=== PATIENT | male | born 1955 | race Caucasian/White ===

== ENCOUNTER 2017-03-09 13:52 | Emergency (ER) | payer BC ==
[~2017-03-09] VITALS: Ht 175.3 cm; Wt 99.8 kg
[~2017-03-09 13:52] MED LIST: CPR500T PO; CYCL10TA9 PO; HYDR1TAB PO; METR500T PO; PROP1TAB77 PO
[2017-03-09] MEDS ORDERED: LIDOCAINE/EPI 1%-1:100,000 (XYLOCAINE) 20ML INJ ONE (14:00)
[2017-03-09] MEDS ORDERED: TETANUS,DIPTH,PERTUSS P/F (BOOSTRIX) 0.5 ML VIAL IM ONE (14:00)
--- NOTE | 2017-03-09 14:00 | ED Head Injury ---
General Chief Complaint: Laceration Stated Complaint: FALL/HEAD LACERATION Source: patient Exam Limitations: no limitations History of Present Illness Time seen by provider: 13:59 Initial Comments Brought to ER by family and friends with laceration to the occipital scalp. Patient was at work jumping from one tract to another on a trackhoe when he slipped and fell striking the back of his head on one of the tracks. Tetanus is not up-to-date. No loss of consciousness. No neck pain. No other injuries or complaints of pain. Occurred: just prior to arrival Severity: moderate Location: occipital Method of Injury: fell Loss of Consciousness: no loss of consciousness Allergies and Home Medications Allergies Coded Allergies: No Known Drug Allergies (Unverified , 06/13/10) Home Medications Atorvastatin Calcium 10 Mg Tablet, 10 MG PO, (Reported) Cyclobenzaprine Hcl 10 Mg Tablet, 1 EACH PO TID, (Reported) Oxycodone HCl/Acetaminophen 1 Each Tablet, 1 EACH PO, (Reported) Rutin/Hesp/Bioflav/C/Herb#196 1 Each Tablet, 1 EACH PO, (Reported) Constitutional: see HPI Eyes: No Symptoms Reported Ears, Nose, Mouth, Throat: no symptoms reported Respiratory: no symptoms reported Cardiovascular: no symptoms reported Genitourinary: no symptoms reported Musculoskeletal: no symptoms reported Skin: no symptoms reported Psychiatric/Neurological: No Symptoms Reported Endocrine: No Symptoms Reported Past Xpnhpoc-Bofjgi-Codedr Hx Patient Social History Recent Foreign Travel: No Contact w/Someone Who Travel: No Respiratory Hx Respiratory Disorders: No Cardiovascular Hx Cardiac Disorders: No Neurological Hx Neurological Disorders: No Reproductive System Hx Reproductive Disorders: No Genitourinary Hx Genitourinary Disorders: No Gastrointestinal Hx Gastrointestinal Disorders: Yes Musculoskeletal Hx Musculoskeletal Disorders: Yes Endocrine Hx Endocrine Disorders: No HEENT HX ENT Disorders: Yes Psychosocial Hx Psychiatric Problems: No Blood Transfusions Hx Blood Disorders: No Physical Exam Vital Signs Vital Sign - Last 12Hours 03/09/17 13:54 Temp 98.1 Pulse 106 Resp 20 B/P (MAP) 129/101 Pulse Ox 95 O2 Delivery Room Air Capillary Refill : General Appearance: WD/WN, no apparent distress HEENT: PERRL/EOMI, normal ENT inspection Neck: non-tender, full range of motion, No tender lateral, No tender midline Cardiovascular: regular rate, rhythm, no murmur Respiratory: no respiratory distress, no accessory muscle use Gastrointestinal: normal bowel sounds, non tender, soft Extremities: normal range of motion, non-tender Psychiatric: alert Crainal Nerves: normal hearing, normal speech, PERRL Motor/Sensory: no motor deficit, no sensory deficit Skin: normal color, warm/dry, other (there is a 5 cm laceration to the posterior parietal scalp without active bleeding) [place] Coma Score Best Eye Response: (4) Open Spontaneously Best Verbal Response: (5) Oriented Best Motor Response: (6) Obeys Commands [place] Total: 15 Laceration Repair : Wound Location: Scalp Wound Length (cm): 5 Wound's Depth, Shape: sub Q Irrigated w/ Saline (ccs): 20 Betadine Prep?: Yes Anesthesia: Lidocaine w/ Epi Volume Anesthetic (ccs): 4 Staple Repair: Stapler 35W Progress 10 aleks Progress/Results/Core Measures Results/Orders My Orders Orders - LORRAINE CA APRN Ct Head/Cervical Spine Wo (03/09/17 13:58) Dipht,Pertuss(Acell),Tet Adult (Boostrix (03/09/17 14:00) Lidocaine/Epi 1% 1:100,000 (Xylocaine /E (03/09/17 14:00) Lidocaine/Epi 2% 1:100,000 (Xylocaine/Ep (03/09/17 14:15) Medications Given in ED Current Medications Medications Dose Ordered Sig/Barbara Route Start Time Stop Time Status Last Admin Dose Admin Diphtheria/ Tetanus/Acell Pertussis 0.5 ml ONCE ONCE IM 03/09/17 14:00 03/09/17 14:01 DC 03/09/17 14:20 0.5 ML Lidocaine/ Epinephrine 4 ml ONCE ONCE INJ 03/09/17 14:15 03/09/17 14:16 DC 03/09/17 14:27 4 ML Vital Signs/I&O Vital Sign - Last 12Hours 03/09/17 13:54 Temp 98.1 Pulse 106 Resp 20 B/P (MAP) 129/101 Pulse Ox 95 O2 Delivery Room Air Diagnostic Imaging Diagonstic Imaging: CT Comments NAME: FERNIE RAMIREZ MED REC#: [id number] PT STATUS: REG ER : 1955 PHYSICIAN: LORRAINE CA APRN ADMIT DATE: 03/09/17/ER Draft Date of Exam:03/09/17 CT HEAD/CERVICAL SPINE WO PROCEDURE: CT head and CT cervical spine without contrast. TECHNIQUE: Multiple contiguous axial images were obtained through the brain and cervical spine without the use of intravenous contrast. Sagittal and coronal reformations through the cervical spine were then performed. INDICATION: Headache following head injury. Additional laceration along the upper scalp. COMPARISON: None. DISCUSSION: Head: No intracranial hemorrhage, mass, midline shift, or hydrocephalus. The ventricles and sulci are normal size and configuration for age. The visualized orbits, paranasal sinuses, mastoid air cells, and calvarium are unremarkable. Cervical spine: There is mild straightening of the normal cervical lordosis, commonly due to positioning or muscle spasm. Moderate degenerative changes are noted within the cervical spine, age related. No acute fracture or subluxation. The visualized paraspinal soft tissues are unremarkable. IMPRESSION: 1. Negative head CT. 2. Negative cervical spine CT. Dictated on workstation # [id number] Dict: 03/09/17 1422 Trans: 03/09/17 1426 [id number] Interpreted by: IVET ACEVES MD Electronically signed by: Departure Impression Impression: Primary Impression: Scalp laceration Qualified Codes: S01.01XA - Laceration without foreign body of scalp, initial encounter Disposition: HOME, SELF-CARE Condition: Stable Departure-Patient Inst. Decision time for Depature: 14:01 Referrals: NO,LOCAL PHYSICIAN (PCP/Family) Primary Care Physician Patient Instructions: Laceration Repair With [place] (DC) Add. Discharge Instructions: Return here in 5-7 days to have the aleks removed. 2. Return here before then for any sign of head injury such as severe headaches , forgetfulness, uncontrollable nausea or vomiting 3. Return for any sign of infection such as redness, swelling, drainage or fevers 4. Starting this evening you may shower and wash the area gently with soap and water. All discharge instructions reviewed with patient and/or family. Voiced understanding. LORRAINE CA APRN Mar 09, 2017 14:00
[2017-03-09] MEDS ORDERED: RUTI1TAB PO (14:05)
[2017-03-09] MEDS ORDERED: ATOR10TA PO (14:05)
[2017-03-09] MEDS ORDERED: OXYC-464 PO (14:05)
[2017-03-09] MEDS ORDERED: LIDOCAINE/EPI 2% 1:100,00 (XYLOCAINE) 20 ML VIAL INJ ONE (14:15)
--- NOTE | 2017-03-09 14:26 | Diagnostic Imaging Report ---
PROCEDURE: CT head and CT cervical spine without contrast. TECHNIQUE: Multiple contiguous axial images were obtained through the brain and cervical spine without the use of intravenous contrast. Sagittal and coronal reformations through the cervical spine were then performed. INDICATION: Headache following head injury. Additional laceration along the upper scalp. COMPARISON: None. DISCUSSION: Head: No intracranial hemorrhage, mass, midline shift, or hydrocephalus. The ventricles and sulci are normal size and configuration for age. The visualized orbits, paranasal sinuses, mastoid air cells, and calvarium are unremarkable. Cervical spine: There is mild straightening of normal cervical lordosis, commonly due to positioning or muscle spasm. Moderate degenerative changes are noted throughout the cervical spine, consistent with age-related degenerative disease. No acute fracture or subluxation identified. The visualized paraspinal soft tissues are unremarkable. IMPRESSION: 1. Negative head CT. 2. Negative cervical spine CT. Dictated by: Dictated on workstation # [id number]
[2017-03-09 14:42] VITALS: BP 130/98
== END 2017-03-09 14:42 | disposition home or self-care (01) ==
LOC: EDUNIT# 13:52 → ER 13:56
DX: S01.01XA Laceration without foreign body of scalp, initial encounter (principal); Z23 Encounter for immunization; W01.198A Fall on same level from slipping, tripping and stumbling with subsequent striking against other object, initial encounter; Y92.89 Other specified places as the place of occurrence of the external cause; Y93.39 Activity, other involving climbing, rappelling and jumping off
CPT/HCPCS: 12002; 64450; 70450; 72125; 90715

== ENCOUNTER 2017-03-16 11:58 | Emergency (ER) | payer BC ==
[~2017-03-16] VITALS: Ht 177.8 cm; Wt 104.3 kg
[~2017-03-16 11:58] MED LIST changes: +ATOR10TA PO; +OXYC-464 PO; +RUTI1TAB PO
[2017-03-16 12:11] VITALS: BP 135/87
== END 2017-03-16 12:11 | disposition home or self-care (01) ==
LOC: EDUNIT# 11:58 → ER 12:00
DX: Z48.02 Encounter for removal of sutures (principal)

== ENCOUNTER 2017-09-14 04:29 | Inpatient (IN) | payer BC ==
[~2017-09-14] VITALS: Ht 175.3 cm; Wt 105.9 kg
--- OUTSIDE RECORDS SUMMARY | 2017-09-14 04:41 | XMS REPORT ---
Author DANI Haque [facility] Address [address] [place], [place] [id number] Care Team Providers Care Reading Specialist Name Role Phone DANI ANDRADE PCP Unavailable DANI ANDRADE PreferredProvider Unavailable Allergies and Adverse Reactions Name Reaction Notes NO KNOWN DRUG ALLERGIES Plan of Treatment Not available. Medications Active Name Start Date Estimated Completion Date SIG Comments diclofenac sodium 75 mg oral tablet,delayed release (DR/EC) 07/21/2013 take 1 tablet (75 mg) by oral route 2 times per day omeprazole 20 mg oral capsule,delayed release(DR/EC) 08/22/2013 TAKE ONE CAPSULE BY MOUTH EVERY DAY diclofenac sodium 75 mg oral tablet,delayed release (DR/EC) 11/16/2013 TAKE ONE TABLET BY MOUTH TWICE DAILY. cyclobenzaprine 10 mg oral tablet 11/16/2013 TAKE ONE TABLET BY MOUTH THREE TIMES DAILY FOR MUSCLE SPASM diclofenac sodium 75 mg oral tablet,delayed release (DR/EC) 12/13/2013 TAKE ONE TABLET BY MOUTH TWICE DAILY. cyclobenzaprine 10 mg oral tablet 12/13/2013 TAKE ONE TABLET BY MOUTH THREE TIMES DAILY FOR MUSCLE SPASM diclofenac sodium 75 mg oral tablet,delayed release (DR/EC) 01/16/2014 TAKE ONE TABLET BY MOUTH TWICE DAILY. cyclobenzaprine 10 mg oral tablet 01/16/2014 TAKE ONE TABLET BY MOUTH THREE TIMES DAILY FOR MUSCLE SPASM omeprazole 20 mg oral capsule,delayed release(DR/EC) 01/16/2014 TAKE ONE CAPSULE BY MOUTH EVERY DAY omeprazole 20 mg oral capsule,delayed release(DR/EC) 06/14/2014 TAKE ONE CAPSULE BY MOUTH EVERY DAY cyclobenzaprine 10 mg oral tablet 06/14/2014 TAKE ONE TABLET BY MOUTH THREE TIMES DAILY FOR MUSCLE SPASM diclofenac sodium 75 mg oral tablet,delayed release (DR/EC) 06/14/2014 TAKE ONE TABLET BY MOUTH TWICE DAILY. cyclobenzaprine 10 mg oral tablet 11/20/2014 TAKE ONE TABLET BY MOUTH THREE TIMES DAILY FOR MUSCLE SPASM diclofenac sodium 75 mg oral tablet,delayed release (DR/EC) 11/20/2014 TAKE ONE TABLET BY MOUTH TWICE DAILY. diclofenac sodium 75 mg oral tablet,delayed release (DR/EC) 12/22/2014 TAKE ONE TABLET BY MOUTH TWICE DAILY. diclofenac sodium 75 mg oral tablet,delayed release (DR/EC) 01/22/2015 TAKE ONE TABLET BY MOUTH TWICE DAILY. baclofen 10 mg oral tablet 02/28/2015 take 1 tablet (10 mg) by oral route 3 times per day PRN Symbicort 160-4.5 mcg/actuation inhalation HFA aerosol inhaler 04/22/2016 inhale 2 puffs by inhalation route 2 times per day in the morning and evening diclofenac sodium 75 mg oral tablet,delayed release (DR/EC) 04/28/2016 TAKE ONE TABLET BY MOUTH TWICE DAILY. cyclobenzaprine 10 mg oral tablet 04/28/2016 TAKE ONE TABLET BY MOUTH THREE TIMES DAILY FOR MUSCLE SPASM lisinopril-hydrochlorothiazide 20-12.5 mg oral tablet 07/29/2016 TAKE ONE TABLET BY MOUTH ONCE DAILY FOR 30 DAYS diclofenac sodium 75 mg oral tablet,delayed release (DR/EC) 07/29/2016 TAKE ONE TABLET BY MOUTH TWICE DAILY. Ambien 10 mg Oral tablet 10/03/2016 take 1 tablet (10 mg) by oral route once daily at bedtime PRN sleep cyclobenzaprine 10 mg oral tablet 11/21/2016 TAKE ONE TABLET BY MOUTH THREE TIMES DAILY FOR MUSCLE SPASM cyclobenzaprine 10 mg oral tablet 11/21/2016 TAKE ONE TABLET BY MOUTH THREE TIMES DAILY FOR MUSCLE SPASM lisinopril-hydrochlorothiazide 20-12.5 mg oral tablet 12/22/2016 TAKE ONE TABLET BY MOUTH ONCE DAILY FOR 30 DAYS diclofenac sodium 75 mg oral tablet,delayed release (DR/EC) 12/22/2016 TAKE ONE TABLET BY MOUTH TWICE DAILY Percocet 7.5-325 mg oral tablet 03/23/2017 04/22/2017 take 1 tablet by oral route every 4 hours as needed for pain for 30 days doxycycline hyclate 100 mg oral capsule 03/23/2017 04/22/2017 take 1 capsule ( 100 mg) by oral route 2 times per day for 30 days Name Start Date Expiration Date SIG Comments HYDROCO/APAP 5-500MGTAB 5 each 09/17/2010 09/29/2010 [id number] - TAKE ONE TO TWO TABLETS BY MOUTH EVERY 6 HOURS NEEDED FOR PAIN VICODIN 5-500MG TAB 5 each 12/17/2010 12/29/2010 [id number] - TAKE ONE TO TWO TABLETS BY MOUTH EVERY 6 HOURS NEEDED FOR PAIN AMBIEN 10MG TAB 10 each 01/22/2011 02/21/2011 [id number] - TAKE ONE TABLET BY MOUTH AT BEDTIME NEEDED FOR INSOMNIA zolpidem 10 mg oral tablet 03/03/2011 04/02/2011 TAKE ONE TABLET BY MOUTH EVERY DAY triamcinolone acetonide 0.1 % topical cream 04/10/2011 apply to affected area(s) by topical route 2 times a day prednisone 20 mg oral tablet 08/13/2011 08/21/2011 TAKE FOUR TABLETS BY MOUTH EVERY DAY FOR 2 DAYS,THREE EVERY DAY FOR 2 DAYS,TWO EVERY DAY FOR 2 DAYS THEN ONE EVERY DAY FOR 2 DAYS gabapentin 300 mg oral capsule 08/13/2011 11/11/2011 TAKE ONE CAPSULE BY MOUTH THREE TIMES DAILY carisoprodol 350 mg oral tablet 08/13/2011 10/12/2011 TAKE ONE TABLET BY MOUTH AT BEDTIME meloxicam 15 mg oral tablet 11/10/2011 12/10/2011 TAKE ONE TABLET BY MOUTH EVERY DAY cyclobenzaprine 10 mg oral tablet 01/08/2012 05/07/2012 TAKE ONE TABLET BY MOUTH THREE TIMES DAILY FOR MUSCLE SPASM Soma 350 mg oral tablet 02/20/2012 04/20/2012 1HS - TAKE ONE TABLET BY MOUTH AT BEDTIME Bactrim DS 800-160 mg oral tablet 03/15/2012 03/30/2012 take 1 tablet by oral route every 12 hours for 15 days zolpidem 10 mg oral tablet 03/23/2012 04/22/2012 TAKE ONE TABLET BY MOUTH EVERY DAY AT BEDTIME FOR 30 DAYS doxycycline hyclate 100 mg oral tablet 03/26/2012 04/25/2012 take 1 tablet ( 100 mg) by oral route every 12 hours for 30 days for tick bite Restoril 15 mg oral capsule 05/19/2012 take 1 capsule (15 mg) by oral route once daily at bedtime as needed omeprazole 20 mg oral capsule,delayed release(DR/EC) 12/10/2012 12/10/2012 take 1 capsule (20 mg) by oral route once daily before a meal Contrave 8-90 mg oral tablet extended release 04/12/2015 07/11/2015 take 2 tablets by oral route 2 times per day in the morning and evening for 30 days lisinopril-hydrochlorothiazide 20-12.5 mg oral tablet 04/24/2016 07/23/2016 take 1 tablet by oral route once daily for 30 days Zithromax Z-Sloan 250 mg oral tablet 04/22/2016 04/27/2016 take 2 tablets (500 mg) by oral route once daily for 1 day then 1 tablet (250 mg) by oral route once daily for 4 days Discontinued Name Start Date Discontinued Date SIG Comments Vicodin 5-500 mg oral tablet 07/25/2010 05/13/2011 take 1 tablet (5-500 mg) by oral route 4 times a day Ambien 10 mg oral tablet 04/26/2012 05/19/2012 take 1 tablet (10 mg) by oral route once daily at bedtime for 30 days cyclobenzaprine 10 mg oral tablet 01/22/2015 02/28/2015 TAKE ONE TABLET BY MOUTH THREE TIMES DAILY FOR MUSCLE SPASM Problem List Description Status Onset Chronic pain Active Osteoarthritis Active Carpel tunnel syndrome Active Reflex sympathetic dystrophy Active FDC medication use - Tylenol Active Anemia Active Hyperlipidemia, Mixed Active Gastroesophageal Reflux Active 12/21/2013 Insomnia Active 03/11/2015 Essential hypertension with goal blood pressure less than 130/85 Active 04/27 Medication management Active 12/30/2016 Chronic pain due to trauma Active 03/24/2017 Pain management Active 03/24/2017 Vital Signs Date Time BP-Sys(mm[Hg] BP-Naz(mm[Hg]) HR(bpm) RR(rpm) Temp WT HT HC BMI BSA BMI Percentile O2 Sat(%) 03/23/2017 10:44:00 AM 118 mmHg 78 mmHg 92 bpm 16 rpm 98.2 F 260 lbs 69 in 38.39 kg/m2 2.40 m2 93 % 12/23/2016 3:23:00 PM 118 mmHg 70 mmHg 88 bpm 18 rpm 97.4 F 249 lbs 69 in 36.7705 kg/m 2.3449 m 93 % 05/01/2016 1:53:00 PM 142 mmHg 88 mmHg 74 bpm 16 rpm 98.2 F 255 lbs 69 in 37.66 kg/m2 2.37 m2 94 % 04/24/2016 8:20:00 AM 150 mmHg 98 mmHg 105 bpm 18 rpm 98.3 F 260 lbs 69 in 38.3949 kg/m 2.3961 m 94 % 04/22/2016 9:53:00 AM 162 mmHg 108 mmHg 95 bpm 18 rpm 97.6 F 257 lbs 69 in 37.95 kg/m2 2.38 m2 94 % 01/22/2016 4:01:00 PM 145 mmHg 80 mmHg 92 bpm 16 rpm 99.2 F 244.5 lbs 69 in 36.106 kg/m 2.3236 m 100 % 02/28/2015 11:33:00 AM 150 mmHg 80 mmHg 96 bpm 18 rpm 97.5 F 242 lbs 69 in 35.74 kg/m2 2.31 m2 95 % 03/02/2014 11:00:00 AM 148 mmHg 74 mmHg 94 bpm 20 rpm 96.7 F 245 lbs 69 in 36.1798 kg/m 2.326 m 95 % 12/21/2013 9:00:00 AM 142 mmHg 80 mmHg 90 bpm 20 rpm 97.3 F 242.437 lbs 69 in 35.80 kg/m2 2.31 m2 93 % 12/01/2012 9:39:00 AM 140 mmHg 78 mmHg 88 bpm 18 rpm 97.4 F 242 lbs 69 in 35.7368 kg/m 2.3117 m 98 % 05/19/2012 8:48:00 AM 138 mmHg 78 mmHg 88 bpm 234 lbs 69 in 34.56 kg/m2 2.27 m2 03/15/2012 9:41:00 AM 124 mmHg 86 mmHg 104 bpm 97.4 F 230 lbs 69 in 33.9647 kg/m 2.2537 m 95 % 02/16/2012 10:56:00 AM 132 mmHg 84 mmHg 80 bpm 240 lbs 69 in 35.44 kg/m2 2.30 m2 02/09/2012 1:25:00 PM 155 mmHg 80 mmHg 73 bpm 18 rpm 97.8 F 99 % 06/04/2011 10:12:00 AM 158 mmHg 98 mmHg 87 bpm 16 rpm 95.5 F 233.562 lbs 69 in 34.49 kg/m2 2.27 m2 87 % 04/10/2011 10:07:00 AM 126 mmHg 80 mmHg 76 bpm 228 lbs 03/12/2011 2:07:00 PM 136 mmHg 82 mmHg 80 bpm 228 lbs 01/01/2011 2:01:00 PM 124 mmHg 82 mmHg 84 bpm 230 lbs 06/26/2010 2:09:00 PM 126 mmHg 84 mmHg 80 bpm 216 lbs 06/17/2010 11:09:00 AM 136 mmHg 84 mmHg 67 bpm 18 rpm 96.2 F 214 lbs 94 % Social History Name Description Comments lives with partner in a house Grown Children Living with significant other Denies illicit substance abuse Tobacco Former smoker denies alcohol use High school graduate Active but no formal exercise Uses seatbelts History of Procedures Date Ordered Description Order Status 05/26/2011 12:00 AM MUSCLE TEST 2 LIMBS Reviewed 05/26/2011 12:00 AM NERVE CONDUCTION, MOTOR Reviewed 05/26/2011 12:00 AM NERVE CONDUCTION, SENSORY Reviewed 05/13/2016 12:00 AM X-RAY EXAM OF FOOT Returned 08/06/2016 12:00 AM Prostate Cancer Screening Returned 02/16/2012 12:00 AM URINALYSIS AUTO W/O SCOPE Reviewed 05/12/2012 12:00 AM ROUTINE VENIPUNCTURE Reviewed 05/12/2012 12:00 AM COMPLETE CBC W/AUTO DIFF WBC Reviewed 05/12/2012 12:00 AM COMPREHEN METABOLIC PANEL Reviewed 05/12/2012 12:00 AM ASSAY OF PSA TOTAL Reviewed 05/12/2012 12:00 AM LIPID PANEL Reviewed 12/01/2012 12:00 AM ROUTINE VENIPUNCTURE Reviewed 12/01/2012 12:00 AM COMPLETE CBC W/AUTO DIFF WBC Reviewed 12/01/2012 12:00 AM COMPREHEN METABOLIC PANEL Reviewed 12/01/2012 12:00 AM LIPID PANEL Reviewed 12/21/2013 12:00 AM COMPLETE CBC W/AUTO DIFF WBC Reviewed 12/21/2013 12:00 AM COMPREHEN METABOLIC PANEL Reviewed 12/21/2013 12:00 AM LIPID PANEL Reviewed 12/21/2013 12:00 AM Prostate Cancer Screening Reviewed 12/21/2013 12:00 AM ROUTINE VENIPUNCTURE Reviewed 03/02/2014 12:00 AM MRI JNT OF LWR EXTRE W/O DYE Reviewed 03/02/2014 12:00 AM MRI JNT OF LWR EXTRE W/O DYE Reviewed 03/02/2014 12:00 AM MRI LOWER EXTREMITY W/O DYE Reviewed 01/22/2015 12:00 AM COMPLETE CBC W/AUTO DIFF WBC Reviewed 01/22/2015 12:00 AM COMPREHEN METABOLIC PANEL Reviewed 01/22/2015 12:00 AM LIPID PANEL Reviewed 01/22/2015 12:00 AM Prostate Cancer Screening Reviewed 01/22/2015 12:00 AM ROUTINE VENIPUNCTURE Reviewed 04/10/2011 12:00 AM THER/PROPH/DIAG INJ SC/IM Reviewed 04/10/2011 12:00 AM Decadron Inj.1mg-([facility]) [facility] #[id number] Reviewed 04/10/2011 12:00 AM Depo-Medrol 120 Mg Im/[facility] [phone] Reviewed Results Summary Date and Description Results 05/12/2012 4:14 PM PSA TOTAL 2.730 ng/mLWBC 6.6 RBC 4.22 HGB 12.50 g/dLHCT 38.40 %MCV 91.0 fLMCH 29.60 pgMCHC 32.60 g/dLRDW SD 43 RDW CV 13.20 %MPV 10.90 fLPLT 221 NRBC# 0.00 NRBC% 0.0 %NEUT 50.50 %%LYMP 34.80 %%MONO 11.40 %%EOS 3.0 % %BASO 0.30 %#NEUT 3.31 #LYMP 2.28 #MONO 0.75 #EOS 0.20 #BASO 0.02 MANUAL DIFF NOT IND GLUCOSE 92.0 mg/dLSODIUM 139.0 mmol/LPOTASSIUM 4.0 mmol/LCHLORIDE 105.0 mmol/LCO2 25.0 mmol/LBUN 20.0 mg/dLCREATININE 0.90 mg/dLSGOT/AST 29.0 IU/LSGPT/ ALT 35.0 IU/LALK PHOS 51.0 IU/LTOTAL PROTEIN 6.60 g/dLALBUMIN 4.10 g/dLTOTAL BILI 0.30 mg/dLCALCIUM 9.0 mg/dLAGE 56 GFR NonAA 87 GFR AA 105 eGFR 60 eGFR AA* 60 TRIGLYCERIDES 164.0 mg/dLCHOLESTEROL 178.0 mg/dLHDL 36.0 mg/dLTOT CHOL/HDL 4.9 LDL 113.0 mg/dL 12/01/2012 4:07 PM WBC 7.8 RBC 4.55 HGB 13.80 g/dLHCT 41.90 %MCV 92.0 fLMCH 30.30 pgMCHC 32.90 g/dLRDW SD 44 RDW CV 13.10 %MPV 10.70 fLPLT 239 NRBC# 0.00 NRBC% 0.0 %NEUT 58.50 %%LYMP 31.10 %%MONO 7.40 %%EOS 2.60 %%BASO 0.40 %#NEUT 4.56 #LYMP 2.42 #MONO 0.58 #EOS 0.20 #BASO 0.03 MANUAL DIFF NOT IND GLUCOSE 94.0 mg/dLSODIUM 139.0 mmol/LPOTASSIUM 4.40 mmol/LCHLORIDE 106.0 mmol/LCO2 24.0 mmol/LBUN 10.0 mg/dLCREATININE 0.90 mg/dLSGOT/AST 35.0 IU/LSGPT/ALT 57.0 IU/ LALK PHOS 52.0 IU/LTOTAL PROTEIN 7.0 g/dLALBUMIN 4.0 g/dLTOTAL BILI 0.40 mg/ dLCALCIUM 9.60 mg/dLAGE 57 GFR NonAA 87 GFR AA 105 eGFR 60 eGFR AA* 60 TRIGLYCERIDES 185.0 mg/dLCHOLESTEROL 172.0 mg/dLHDL 34.0 mg/dLTOT CHOL/HDL 5.1 LDL 103.0 mg/dL 12/21/2013 3:34 PM WBC 6.8 RBC 4.75 HGB 14.50 g/dLHCT 44.20 %MCV 93.0 fLMCH 30.50 pgMCHC 32.80 g/dLRDW SD 44 RDW CV 12.80 %MPV 10.40 fLPLT 227 NRBC# 0.00 NRBC% 0.0 %NEUT 60.30 %%LYMP 25.10 %%MONO 11.20 %%EOS 2.80 %%BASO 0.60 %#NEUT 4.11 #LYMP 1.71 #MONO 0.76 #EOS 0.19 #BASO 0.04 MANUAL DIFF NOT IND TRIGLYCERIDES 176.0 mg/dLCHOLESTEROL 187.0 mg/dLHDL 40.0 mg/dLTOT CHOL/HDL 4.7 LDL (CALC) 112.0 mg/dLPSA TOTAL 2.810 ng/mLGLUCOSE 102.0 mg/dLSODIUM 141.0 mmol/ LPOTASSIUM 4.30 mmol/LCHLORIDE 107.0 mmol/LCO2 23.0 mmol/LBUN 16.0 mg/ dLCREATININE 1.0 mg/dLSGOT/AST 37.0 IU/LSGPT/ALT 55.0 IU/LALK PHOS 66.0 IU/ LTOTAL PROTEIN 7.20 g/dLALBUMIN 4.30 g/dLTOTAL BILI 0.30 mg/dLCALCIUM 9.0 mg/ dLAGE 58 GFR NonAA 76 GFR AA 92 eGFR 60 eGFR AA* 60 01/22/2015 3:44 PM WBC 7.0 RBC 4.79 HGB 14.60 g/dLHCT 44.30 %MCV 93.0 fLMCH 30.50 pgMCHC 33.0 g/dLRDW SD 43 RDW CV 12.80 %MPV 10.70 fLPLT 198 NRBC# 0.00 NRBC% 0.0 %NEUT 59.70 %%LYMP 30.90 %%MONO 6.60 %%EOS 2.20 %%BASO 0.60 %#NEUT 4.16 #LYMP 2.15 #MONO 0.46 #EOS 0.15 #BASO 0.04 MANUAL DIFF NOT IND GLUCOSE 99.0 mg/dLSODIUM 142.0 mmol/LPOTASSIUM 4.30 mmol/LCHLORIDE 105.0 mmol/LCO2 25.0 mmol/LBUN 15.0 mg/dLCREATININE 0.90 mg/dLSGOT/AST 26.0 IU/LSGPT/ALT 31.0 IU/ LALK PHOS 57.0 IU/LTOTAL PROTEIN 6.90 g/dLALBUMIN 4.40 g/dLTOTAL BILI 0.60 mg/ dLCALCIUM 9.30 mg/dLAGE 59 GFR NonAA 86 GFR AA 104 eGFR >60 mL/min/1.73 m2eGFR AA* >60 TRIGLYCERIDES 154.0 mg/dLCHOLESTEROL 168.0 mg/dLHDL 34.0 mg/dLTOT CHOL/ HDL 4.9 LDL (CALC) 103.0 mg/dLPSA TOTAL 2.750 ng/mL 10/24/2015 4:16 PM GLUCOSE 106.0 mg/dLSODIUM 140.0 mmol/LPOTASSIUM 4.30 mmol/ LCHLORIDE 108.0 mmol/LCO2 22.0 mmol/LBUN 19.0 mg/dLCREATININE 0.90 mg/dLSGOT/ AST 27.0 IU/LSGPT/ALT 39.0 IU/LALK PHOS 61.0 IU/LTOTAL PROTEIN 6.70 g/dLALBUMIN 4.30 g/dLTOTAL BILI 0.40 mg/dLCALCIUM 9.20 mg/dLAGE 60 GFR NonAA 86 GFR AA 104 eGFR >60 mL/min/1.73meGFR AA* >60 TRIGLYCERIDES 276.0 mg/dLCHOLESTEROL 179.0 mg/dLHDL 33.0 mg/dLTOT CHOL/HDL 5.4 LDL 104.0 mg/dLWBC 7.7 RBC 4.82 HGB 14.80 g/ dLHCT 44.30 %MCV 92.0 fLMCH 30.70 pgMCHC 33.40 g/dLRDW SD 43 RDW CV 12.70 %MPV 10.40 fLPLT 208 NRBC# 0.00 NRBC% 0.0 %NEUT 52.40 %%LYMP 35.90 %%MONO 8.90 %%EOS 2.30 %%BASO 0.50 %#NEUT 4.04 #LYMP 2.77 #MONO 0.69 #EOS 0.18 #BASO 0.04 MANUAL DIFF NOT IND 08/06/2016 1:09 PM WBC 6.6 RBC 4.27 HGB 12.90 g/dLHCT 40.40 %MCV 95.0 fLMCH 30.20 pgMCHC 31.90 g/dLRDW SD 43 RDW CV 12.40 %MPV 10.30 fLPLT 225 NRBC# 0.00 NRBC% 0.0 %NEUT 55.40 %%LYMP 31.80 %%MONO 8.60 %%EOS 2.60 %%BASO 0.80 %#NEUT 3.69 #LYMP 2.11 #MONO 0.57 #EOS 0.17 #BASO 0.05 MANUAL DIFF NOT IND GLUCOSE 103.0 mg/dLSODIUM 141.0 mmol/LPOTASSIUM 4.40 mmol/LCHLORIDE 105.0 mmol/LCO2 23.0 mmol/LBUN 18.0 mg/dLCREATININE 1.0 mg/dLSGOT/AST 33.0 IU/LSGPT/ALT 40.0 IU/ LALK PHOS 52.0 IU/LTOTAL PROTEIN 6.90 g/dLALBUMIN 4.20 g/dLTOTAL BILI 0.40 mg/ dLCALCIUM 9.0 mg/dLAGE 61 GFR NonAA 76 GFR AA 92 eGFR >60 mL/min/1.73meGFR AA * >60 PSA TOTAL 3.130 ng/mLTRIGLYCERIDES 195.0 mg/dLCHOLESTEROL 175.0 mg/dLHDL 33.0 mg/dLTOT CHOL/HDL 5.3 LDL 108.0 mg/dL History Of Immunizations Not available. History of Past Illness Name Date of Onset Comments Osteoarthritis Chronic pain Carpel tunnel syndrome Reflex sympathetic dystrophy FDC medication use - Tylenol Anemia Hyperlipidemia, Mixed Gastroesophageal Reflux 12/21/2013 Contusion Jun 17 2010 11:14AM Follow-Up Examination Jun 17 2010 11:14AM Ankle Sprain/Strain Jun 17 2010 11:14AM RibFracture Jun 17 2010 11:14AM Sprain/Strain Jun 26 2010 2:10PM Costochondritis Jun 26 2010 2:10PM Insomnia 03/11/2015 Osteoarthrosis Jan 01 2011 2:01PM Insomnia Jan 01 2011 2:01PM Essential hypertension with goal blood pressure less than 130/85 04/27/2016 Osteoarthrosis Mar 12 2011 2:05PM Chronic pain Mar 12 2011 2:05PM Medication management 12/30/2016 Chronic pain due to trauma 03/24/2017 Pain management 03/24/2017 Contact Dermatitis Apr 10 2011 10:06AM Pain in limb May 26 2011 9:56AM Skin Sensation Disturbance May 26 2011 9:56AM Muscle weakness May 26 2011 9:56AM Carpal Tunnel Syndrome May 26 2011 9:56AM Osteoarthrosis, generalized, multiple sites Jun 04 2011 10:12AM Elevated Blood Pressure Without Diagnosis Of Hypertension Jun 04 2011 10:12AM Lymphedema Jun 04 2011 10:12AM General Medical Exam, Adult Feb 16 2012 10:58AM Cellulitis Mar 15 2012 9:42AM Cellulitis/Abscess; trunk Mar 15 2012 9:42AM Fatigue May 12 2012 1:40PM Prostate screening May 12 2012 1:40PM Blood Pressure Reading Elevated Without Diagnosis Of Hypertension May 12 2012 1:40PM Chronic pain May 12 2012 1:40PM Osteoarthritis May 12 2012 1:40PM Gastroesophageal Reflux May 19 2012 8:49AM Osteoarthrosis, generalized, multiple sites May 19 2012 8:49AM Insomnia May 19 2012 8:49AM Chronic pain May 19 2012 8:49AM Hyperlipidemia Dec 01 2012 12:35PM Anemia Dec 01 2012 12:35PM Chronic pain Dec 01 2012 12:35PM Reflex Sympathetic Dystrophy Dec 01 2012 12:35PM terminal worker medication use - Tylenol Dec 01 2012 12:35PM Hyperlipidemia, Mixed Dec 01 2012 12:35PM Osteoarthritis Dec 01 2012 9:40AM Reflex Sympathetic Dystrophy Dec 01 2012 9:40AM FDC medication use - Tylenol Dec 01 2012 9:40AM Anemia Dec 01 2012 9:40AM Hyperlipidemia, Mixed Dec 01 2012 9:40AM Carpal Tunnel Syndrome Dec 01 2012 9:40AM Chronic pain Dec 21 2013 9:06AM Osteoarthritis Dec 21 2013 9:06AM Reflex Sympathetic Dystrophy Dec 21 2013 9:06AM FDC medication use - Tylenol Dec 21 2013 9:06AM Anemia Dec 21 2013 9:06AM Hyperlipidemia, Mixed Dec 21 2013 9:06AM Gastroesophageal Reflux Dec 21 2013 9:01AM Chronic pain Dec 21 2013 9:01AM Osteoarthritis Dec 21 2013 9:01AM Reflex Sympathetic Dystrophy Dec 21 2013 9:01AM Hyperlipidemia, Mixed Dec 21 2013 9:01AM Pain in joint; lower leg/knee Mar 02 2014 3:46PM Left Pain in joint; lower leg/knee Mar 02 2014 11:00AM Chronic pain Jan 22 2015 11:23AM Osteoarthritis Jan 22 2015 11:23AM Reflex Sympathetic Dystrophy Jan 22 2015 11:23AM terminal worker medication use - Tylenol Jan 22 2015 11:23AM Anemia Jan 22 2015 11:23AM Hyperlipidemia, Mixed Jan 22 2015 11:23AM Prostate cancer screening Jan 22 2015 11:23AM Chronic pain Feb 28 2015 11:34AM Insomnia Feb 28 2015 11:34AM Body Mass Index [BMI]; body mass index between 30-39, adult; body mass index 32.0-32.9, adult Feb 28 2015 11:34AM Gastroesophageal Reflux Feb 28 2015 11:34AM Osteoarthritis Feb 28 2015 11:34AM Reflex Sympathetic Dystrophy Feb 28 2015 11:34AM Hyperlipidemia, Mixed Feb 28 2015 11:34AM Hyperlipidemia Oct 24 2015 12:50PM Anemia Oct 24 2015 12:50PM Chronic pain Oct 24 2015 12:50PM Reflex Sympathetic Dystrophy Oct 24 2015 12:50PM FDC medication use - Tylenol Oct 24 2015 12:50PM Hyperlipidemia, Mixed Oct 24 2015 12:50PM Chronic pain Jan 22 2016 4:01PM Tobacco Abuse Jan 22 2016 4:01PM Osteoarthritis, unspecified osteoarthritis type, unspecified site Jan 22 2016 4:01PM Reflex Sympathetic Dystrophy Jan 22 2016 4:01PM Hyperlipidemia, mixed Jan 22 2016 4:01PM Essential hypertension with goal blood pressure less than 130/85 Apr 24 2016 8:20AM Morbid obesity due to excess calories Apr 24 2016 8:20AM Dietary Counseling Apr 24 2016 8:20AM Exercise Counseling Apr 24 2016 8:20AM Eustachian tube dysfunction, bilateral Apr 22 2016 9:54AM Post-nasal drainage Apr 22 2016 9:54AM Upper Respiratory Infection Apr 22 2016 9:54AM Mild Acute Nasal congestion Apr 22 2016 9:54AM Elevated blood pressure Apr 22 2016 9:54AM Essential hypertension with goal blood pressure less than 130/80 May 01 2016 1:53PM Foot contusion May 01 2016 1:53PM Right foot injury, initial encounter May 13 2016 10:22AM Hyperlipidemia Aug 06 2016 11:10AM Anemia Aug 06 2016 11:10AM Prostate screening Aug 06 2016 11:10AM Chronic pain Aug 06 2016 11:10AM Reflex Sympathetic Dystrophy Aug 06 2016 11:10AM terminal worker medication use - Tylenol Aug 06 2016 11:10AM Hyperlipidemia, Mixed Aug 06 2016 11:10AM Essential hypertension with goal blood pressure less than 130/85 Dec 23 2016 3:23PM Primary insomnia Dec 23 2016 3:23PM Primary osteoarthritis involving multiple joints Dec 23 2016 3:23PM Chronic Reflex sympathetic dystrophy Dec 23 2016 3:23PM Hyperlipidemia, Mixed Dec 23 2016 3:23PM Medication management Dec 23 2016 3:23PM Bitten or stung by nonvenomous insect and other nonvenomous arthropods, initial encounter Mar 23 2017 10:44AM Chronic pain due to trauma Mar 23 2017 10:44AM Pain management Mar 23 2017 10:44AM Reflex sympathetic dystrophy Mar 23 2017 10:44AM Payers Insurance Name Company Name Plan Name Plan Number Policy Number Policy Group Number Start Date [employer] [facility] [id number] N/A [employer] [facility] [id number] N/A [employer] DOA JUN 13 N/A [employer] [facility] [id number] N/A [employer] [facility] [id number] N/A History of Encounters Visit Date Visit Type Provider 03/23/2017 Office visit DANI SYLVESTER 12/23/2016 Office visit DANI SYLVESTER 08/06/2016 Office visit DANI SYLVESTER 05/01/2016 Office visit DANI SYLVESTER 04/24/2016 Office visit DANI ANDRADE PA 04/22/2016 Office visit DANI ANDRADE PA 01/22/2016 Office visit DANI ANDRADE PA 10/24/2015 Office visit DANI ANDRADE PA 02/28/2015 Office visit DANI ANDRADE PA 01/22/2015 Office visit DANI ANDRADE PA 03/13/2014 Juni Dial MD 03/02/2014 Office visit DANI ANDRADE PA 12/21/2013 Office visit DANI ANDRADE PA 12/01/2012 Office visit DANI ANDRADE PA 05/19/2012 Office visit DANI ANDRADE PA 05/12/2012 Office visit DANI ANDRADE PA 03/15/2012 Office visit DANI ANDRADE PA 02/16/2012 Office visit DANI ANDRADE PA 06/04/2011 Office visit Dani Andrade PA-C 05/26/2011 Procedures Venu Carlin MD 04/10/2011 Office visit Dani Andrade PA-C 03/12/2011 Office visit Dani Andrade PA-C 01/01/2011 Office visit Dani Andrade PA-C 06/26/2010 Office visit Dani Andrade PA-C 06/17/2010 Office visit Alicia FLANAGAN
--- OUTSIDE RECORDS SUMMARY | 2017-09-14 04:46 | XMS REPORT | Continuity of Care Document ---
Author Author [facility] Organization [facility] Address Unknown Phone Unavailable Allergies There is no data. Medications There is no data. Problems There is no data. Procedures There is no data. Results There is no data. Encounters ACCT No. Visit Date/Time Discharge Status Pt. Type Provider Facility Loc./Unit Complaint [id number] 03/23/2017 10:21:52 03/23/2017 23:59:59 [facility] Outpatient AAYUSH ANDRADE [id number] 12/23/2016 10:56:18 12/23/2016 23:59:59 [facility] Outpatient AAYUSH ANDRADE [id number] 08/06/2016 10:09:52 08/06/2016 23:59:59 [facility] Outpatient AAYUSH ANDRADE [id number] 05/01/2016 14:17:18 05/01/2016 23:59:59 C[facility] Outpatient AAYUSH ANDRADE [id number] 04/24/2016 08:56:29 04/24/2016 23:59:59 CLS Outpatient AAYUSH ANDRADE [id number] 04/22/2016 10:40:23 04/22/2016 23:59:59 CLS Outpatient AAYUSH ANDRADE [id number] 10/24/2015 08:28:18 10/24/2015 23:59:59 CLS Outpatient AAYUSH ANDRADE [id number] 05/07/2015 21:47:43 05/07/2015 23:59:59 CLS Outpatient AAYUSH ANDRADE [id number] 01/22/2015 09:06:26 01/22/2015 23:59:59 CLS Outpatient AAYUSH ANDRADE [id number] 03/30/2014 03:09:14 03/30/2014 23:59:59 CLS Outpatient Florentin Dial [id number] 03/02/2014 11:53:14 03/02/2014 23:59:59 CLS Outpatient AAYUSH ANDRADE [id number] 12/21/2013 09:42:46 12/21/2013 23:59:59 CLS Outpatient AAYUSH ANDRADE
[2017-09-14] MEDS ORDERED: LACTATED RINGERS 1,000 ML IV ONE (04:51)
[2017-09-14] MEDS ORDERED: FAMOTIDINE 20MG/2ML IV (PEPCID) IV STA (04:51)
[2017-09-14] MEDS ORDERED: ONDANSETRON 4 MG/2 ML (SDV) Z0FRAN IVP ONE (05:00)
[2017-09-14] MEDS ORDERED: HYOSCYAMINE 0.125 MG (LEVSIN) TAB SL ONE (05:00)
[2017-09-14 05:02] LABS: BASOPHILS % (AUTO) 0 % (0-10); EOSINOPHILS # (AUTO) 0.3 10^3/uL (0.0-0.3); EOSINOPHILS % (AUTO) 2 % (0-10); LYMPHOCYTES # (AUTO) 2.5 X 10^3 (1.0-4.0); LYMPHOCYTES % (AUTO) 18 % (12-44); MEAN CORPUSCULAR HEMOGLOBIN 31 PG (25-34); MEAN CORPUSCULAR HGB CONC 34 G/DL (32-36); MEAN CORPUSCULAR VOLUME 90 FL (80-99); MEAN PLATELET VOLUME 9.4 FL (7.4-10.4); MONOCYTES # (AUTO) 1.3 X 10^3 (0.0-1.0); MONOCYTES % (AUTO) 9 % (0-12); NEUTROPHILS # (AUTO) 10.1 X 10^3 (1.8-7.8); NEUTROPHILS % (AUTO) 71 % (42-75); PLATELET COUNT 315 10^3/uL (130-400); RED BLOOD COUNT 5.15 10^6/uL (4.35-5.85); RED CELL DISTRIBUTION WIDTH 12.7 % (10.0-14.5); WHITE BLOOD COUNT 14.2 10^3/uL (4.3-11.0)
[2017-09-14 05:24] LABS: ALBUMIN 4.9 GM/DL (3.2-4.5); BILIRUBIN,TOTAL 0.5 MG/DL (0.1-1.0); CALCIUM 10.9 MG/DL (8.5-10.1); CREATININE SERUM 1.25 MG/DL (0.60-1.30); MAGNESIUM 2.4 MG/DL (1.8-2.4); POTASSIUM 4.4 MMOL/L (3.6-5.0)
[2017-09-14 06:19] LABS: BILIRUBIN,URINE NEGATIVE (NEGATIVE); KETONES,URINE NEGATIVE (NEGATIVE); LEUKOCYTE ESTERASE ,URINE NEGATIVE (NEGATIVE); NITRITE,URINE NEGATIVE (NEGATIVE); PH,URINE 5 (5-9); PROTEIN,URINE 2+ (NEGATIVE); UROBILINOGEN,URINE NORMAL (NORMAL)
[2017-09-14 06:38] LABS: SQUAMOUS EPITHELIAL CELL,UR 0-2 /HPF
--- NOTE | 2017-09-14 07:19 | Diagnostic Imaging Report ---
INDICATION: Nausea, vomiting and diarrhea. COMPARISON STUDY: CT scan from today. FINDINGS: Upright view of the chest demonstrates minimal atelectasis in the left lung base. Heart size and vascularity are normal. There are no pleural effusions. Supine and upright views of the abdomen demonstrates a moderate amount of stool in the colon. No bowel dilatation is present. Degenerative changes are present in the lower lumbar spine. No free air or air-fluid levels are present. IMPRESSION: 1. Questionable constipation. 2. Degenerative changes present in the lower lumbar spine. Dictated by: Dictated on workstation # [id number]
[2017-09-14 07:30] VITALS: BP 153/83
[2017-09-14] MEDS ORDERED: ONDANSETRON 4 MG/2 ML (SDV) Z0FRAN IV PRN (07:45)
--- NOTE | 2017-09-14 08:07 | Diagnostic Imaging Report ---
PROCEDURE: CT abdomen and pelvis without contrast. TECHNIQUE: Multiple contiguous axial images were obtained through the abdomen and pelvis without the use of intravenous contrast. INDICATION: Nausea, vomiting, diarrhea. Comparison study: CT scan dated 08/08/2010. FINDINGS: The lung bases are clear. Minimal calcifications are seen within the coronary arteries. Heart size is normal. Fatty metamorphosis of the liver is present with no focal abnormalities. The gallbladder appears unremarkable. No ductal dilatation is present. The pancreas, spleen, adrenal glands, and kidneys are normal. There is no ascites or free air. Urinary bladder appears normal. Prostate gland is mildly enlarged with no focal abnormalities. No inflammation is seen around the appendix. Mild/ moderate arteriosclerotic disease is present. There are no aneurysms. No osseous metastasis is present. Some facet arthropathy is present in the lower lumbar spine. The stomach, duodenum, and proximal small bowel loops are distended with fecalization distally of the distended loops. The transition is fairly gradual on the left mid/ upper abdomen. A tiny abdominal wall hernia just to the left of midline is present. No bowel loops are seen within this. Minimal stranding is seen around this. It is possible that there could have been intermittent herniation. IMPRESSION: There are dilated proximal small bowel loops, duodenum, and stomach with fecalization distally. Possible partial obstruction although no abrupt transition is present. There is a small abdominal wall hernia just to the left of midline with some stranding. This could have been intermittent bowel herniation through this which has since resolved. Dictated by: Dictated on workstation # [id number]
[2017-09-14] MEDS: D5 1/2 NS W/KCL 20 MEQ/L 1,000 ML IV SCH ×3 (08:16→20:57)
[2017-09-14] MEDS: PANTOPRAZOLE 40 MG/10 ML (PROTONIX) VIAL IV SCH (08:16)
[2017-09-14] MEDS ORDERED: LISI1TAB8 PO (08:33)
[2017-09-14] MEDS ORDERED: TIOT4MIS3 INH (08:33)
[2017-09-14] MEDS ORDERED: BACL10TA PO (08:33)
[2017-09-14] MEDS ORDERED: CYCL10TA9 PO (08:33)
[2017-09-14] MEDS ORDERED: CIPR500T4 PO (08:33)
[2017-09-14] MEDS ORDERED: DICL75TA2 PO (08:33)
[2017-09-14] MEDS ORDERED: INFLUENZA TRIvalent 2017-2018 0.5 ML/45 MCG SYR IM ONE (11:15)
[2017-09-14 12:00] VITALS: BP 112/66
--- NOTE | 2017-09-14 12:26 | History & Physical-Surgical ---
History of Present Illness History of Present Illness Reason for visit/HPI Pt presented to the ER early this am. He states he has been "sick" since . He has had nausea, vomiting, constipation and diarrhea as well as abdominal pain. He states that it is not daily. Pain became severe last night around 6pm, rated is an 8 out of 10 on a 1-10 scale. Sharp, diffuse pain, not really radiating anywhere and it was constant. He vomited about 6 times, it got a little better, but then at 2 am got really bad again with now abdominal distention and he decided to go to ER. He denies anyone in his household with similar symptoms and no travel. He also complains of heartburn and other reflux symptoms. He states he had bad abominal pain appx 7 yrs ago which was similar to this; he thinks. Date of Admission Sep 14, 2017 at 06:15 Time Seen by Provider: 11:47 I consulted on this patient on 09/14/17 11:47 Attending Physician Cody Momin DO Admitting Physician Dani Steinberg Consult Allergies and Home Medications Allergies Coded Allergies: No Known Drug Allergies (Unverified , 06/13/10) Home Medications Baclofen 10 Mg Tablet, 10 MG PO TID PRN for MUSCLE SPASMS, (Reported) Ciprofloxacin HCl 500 Mg Tablet, 500 MG PO BID for 10 Days, (Reported) 10 DAY SUPPLY FILLED 09-07-17 Cyclobenzaprine HCl 10 Mg Tablet, 10 MG PO TID, (Reported) Diclofenac Sodium 75 Mg Tablet.dr, 75 MG PO BID, (Reported) Lisinopril/Hydrochlorothiazide 1 Each Tablet, 1 TAB PO DAILY, (Reported) Oxycodone HCl/Acetaminophen 1 Each Tablet, 1 TAB PO Q4H PRN for PAIN-MODERATE, ( Reported) Tiotropium Br/Olodaterol HCl 4 Gm Mist.inhal, 1 PUFF INH BID, (Reported) Past Vazwqga-[id number]-Uzuelv Hx Patient Social History Alcohol Use: Denies Use Recreational Drug Use: No Smoking Status: Former Smoker (smoked at least a pack per day for 30 + years) Former Smoker, Quit: Sep 14, 2005 2nd Hand Smoke Exposure: No Recent Foreign Travel: No Contact w/Someone Who Travel: No Recent Infectious Disease Expo: No Recent Hopitalizations: No Physical Abuse Screen: No Sexual Abuse: No Immunizations Up To Date Tetanus Booster (TDap): Unknown Seasonal Allergies Seasonal Allergies: No Surgeries History of Surgeries: Yes (R ARM) Surgeries: Abdominal (hernia repair) Respiratory History of Respiratory Disorde: No Cardiovascular History of Cardiac Disorders: Yes Cardiac Disorders: Hypertension Neurological History of Neurological Disord: No Reproductive System Hx Reproductive Disorders: No Genitourinary History of Genitourinary Disor: No Gastrointestinal History of Gastrointestinal Di: Yes Gastrointestinal Disorders: Colitis, Gastroesophageal Reflux Musculoskeletal History of Musculoskeletal Dis: Yes 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) Endocrine History of Endocrine Disorders: No HEENT History of HEENT Disorders: No Cancer History of Cancer: No Psychosocial History of Psychiatric Problem: No Integumentary History of Skin or Integumenta: No Blood Transfusions History of Blood Disorders: No Family Medical History Significant Family History: Cancer (father of throat cancer), CAD Under 55 Years Old (mother) Family Medial History: Myocardial infarction 19 MOTHER Neoplasm 19 FATHER ( OF CANCER) Constitutional: chills, diaphoresis, dizziness, fever, weakness EENTM: No hearing loss, No blurred vision, No mouth swelling, No epistaxis, No throat swelling Respiratory: No cough, No dyspnea on exertion, No hemoptysis, No short of breath Cardiovascular: No chest pain, No edema, No palpitations Gastrointestinal: RUQ, LUQ, constipation, No hematemesis, heartburn, No jaundice, No melena, nausea, vomiting, other (denies hematochezia) Genitourinary: No dysuria, No frequency, No hematuria Musculoskeletal: No joint pain, No muscle stiffness, No muscle cramps Skin: No change in color, No change in hair/nails Psychiatric/Neurological: Denies Anxiety, Denies Depressed Other pt denies any abnormal bleeding or bruising, no heat or cold intolerance. No swollen lymph nodes or recurrent infections Physical Exam Vital Signs Vital Sign - Last 12Hours 09/14/17 06:57 Temp 97.7 Pulse 78 Resp 14 Pulse Ox 98 Capillary Refill : Less Than 3 Seconds General Appearance: WD/WN, Mild Distress Eyes: Bilateral Eye PERRL, Bilateral Eye EOMI HEENT: Pharynx Normal, Moist Mucous Membranes, No Pale Conjunctivae (L), No Pale Conjunctivae (R), No Scleral Icterus (L), No Scleral Icterus (R), Other ( NGT in place) Neck: Full Range of Motion, Normal Inspection, Non Tender, Supple Respiratory: Chest Non Tender, Lungs Clear, Normal Breath Sounds, No Accessory Muscle Use, No Respiratory Distress Cardiovascular: Regular Rate, Rhythm, No Edema, No Murmur Gastrointestinal: No Organomegaly, Soft, No Distended, No Rebound, Tenderness ( mild diffuse, more upper quadrants), Other (? recurrent ventral hernia, small umbilical and ??bilateral inguinal) Rectal: Deferred Back: No CVA Tenderness, No Vertebral Tenderness Extremity: Normal Capillary Refill, No Calf Tenderness, No Pedal Edema, Other ( missing fingers 4&5 on right hand) Neurologic/Psychiatric: Alert, Oriented x3, No Motor/Sensory Deficits, Normal Mood/Affect, glove examiner II-XII Norm as Tested Skin: Normal Color, Warm/Dry Lymphatic: No Adenopathy (neck, axilla or groin) Data Review Labs Laboratory Tests 09/14/17 04:55: White Blood Count 14.2H, Red Blood Count 5.15, Hemoglobin 15.8, Hematocrit 46, Mean Corpuscular Volume 90, Mean Corpuscular Hemoglobin 31, Mean Corpuscular Hemoglobin Concent 34, Red Cell Distribution Width 12.7, Platelet Count 315, Mean Platelet Volume 9.4, Neutrophils (%) (Auto) 71, Lymphocytes (%) (Auto) 18, Monocytes (%) (Auto) 9, Eosinophils (%) (Auto) 2, Basophils (%) (Auto) 0, Neutrophils # (Auto) 10.1H, Lymphocytes # (Auto) 2.5, Monocytes # (Auto) 1.3H, Eosinophils # (Auto) 0.3, Basophils # (Auto) 0.0, Sodium Level 142, Potassium Level 4.4, Chloride Level 105, Carbon Dioxide Level 23, Anion Gap 14, Blood Urea Nitrogen 19H, Creatinine 1.25, Estimat Glomerular Filtration Rate 58, BUN/ Creatinine Ratio 15, Glucose Level 136H, Calcium Level 10.9H, Magnesium Level 2.4, Total Bilirubin 0.5, Aspartate Amino Transf (AST/SGOT) 28, Alanine Aminotransferase (ALT/SGPT) 41, Alkaline Phosphatase 51, Total Protein 9.0H, Albumin 4.9H, Amylase Level 102, Lipase 53 09/14/17 06:10: Urine Color YELLOW, Urine Clarity CLEAR, Urine pH 5, Urine Specific [place] 1.020, Urine Protein 2+H, Urine Glucose (UA) NEGATIVE, Urine Ketones NEGATIVE, Urine Nitrite NEGATIVE, Urine Bilirubin NEGATIVE, Urine Urobilinogen NORMAL, Urine Leukocyte Esterase NEGATIVE, Urine RBC (Auto) 1+H, Urine RBC 0-2, Urine WBC NONE, Urine Squamous Epithelial Cells 0-2, Urine Crystals NONE, Urine Bacteria NEGATIVE, Urine Casts NONE, Urine Mucus LARGEH, Urine Culture Indicated NO Assessment/Plan Assessment/Plan Assessment/Plan 1. PSBO 2. HTN 3. Ventral hernia, Umbilical hernia, ??B/L Inguinal hernia Pt was admitted with NGT placement, IV fluids, pain control, anti-emetics and NPO. Will recheck labs in am. I think this is more of a viral gastro-enteritis , do not see obvious transition point; although there is a change from distention to decompressed bowel in the mid jejunum. No bowel in verntal hernia, just some fat. Pt was told to ambulate and chew gum; he also needs to take deep breaths. Once he has more flatus and possibly a BM, can clamp NGT and start ice chips. Will go very slow. Pt may also benefit from an EGD; not sure if that will be done tomorrow or outpt. All questions answered to his and his 's satisfaction. Clinical Quality Measures DVT/VTE Risk/Contraindication: Risk Factor Score Per Nursin RFS Level Per Nursing on Admit: 3=High CODY MOMIN DO Sep 14, 2017 12:25
[2017-09-14] MEDS: fentaNYL INJECTION 100 MCG/2 ML AMP IV PRN ×3 (13:09→20:54)
[2017-09-14] MEDS ORDERED: morphine INJ 4 MG/ML 1 ML (VIAL/SYRINGE) IVP PRN (13:15)
[2017-09-14] MEDS: CHLORASEPTIC SPRAY 177 ML LIQUID MC PRN ×2 (13:37→17:00)
[2017-09-14 16:00] VITALS: BP 120/79
[2017-09-14 20:40] VITALS: BP 117/80
[2017-09-15] VITALS: BP 132/69
[2017-09-15] MEDS: fentaNYL INJECTION 100 MCG/2 ML AMP IV PRN ×2 (01:09→17:55)
[2017-09-15] MEDS: D5 1/2 NS W/KCL 20 MEQ/L 1,000 ML IV SCH ×4 (03:36→20:20)
[2017-09-15 04:00] VITALS: BP 122/75
[2017-09-15 05:31] LABS: BASOPHILS % (AUTO) 0 % (0-10); EOSINOPHILS # (AUTO) 0.3 10^3/uL (0.0-0.3); EOSINOPHILS % (AUTO) 3 % (0-10); LYMPHOCYTES # (AUTO) 2.6 X 10^3 (1.0-4.0); LYMPHOCYTES % (AUTO) 26 % (12-44); MEAN CORPUSCULAR HEMOGLOBIN 31 PG (25-34); MEAN CORPUSCULAR HGB CONC 33 G/DL (32-36); MEAN CORPUSCULAR VOLUME 93 FL (80-99); MEAN PLATELET VOLUME 9.4 FL (7.4-10.4); MONOCYTES % (AUTO) 10 % (0-12); NEUTROPHILS # (AUTO) 6.3 X 10^3 (1.8-7.8); NEUTROPHILS % (AUTO) 61 % (42-75); PLATELET COUNT 248 10^3/uL (130-400); RED BLOOD COUNT 4.46 10^6/uL (4.35-5.85); RED CELL DISTRIBUTION WIDTH 12.7 % (10.0-14.5); WHITE BLOOD COUNT 10.3 10^3/uL (4.3-11.0)
[2017-09-15 05:51] LABS: ALANINE AMINOTRANSFERASE 32 U/L (0-55); ALBUMIN 3.8 GM/DL (3.2-4.5); ANION GAP 9 MMOL/L (5-14); ASPARTATE AMINO TRANSFERASE 23 U/L (5-34); BILIRUBIN,TOTAL 0.5 MG/DL (0.1-1.0); BLOOD UREA NITROGEN 16 MG/DL (7-18); BUN/CREATININE RATIO 16; CALCIUM 9.1 MG/DL (8.5-10.1); CARBON DIOXIDE 25 MMOL/L (21-32); CHLORIDE 104 MMOL/L (98-107); CREATININE SERUM 1.03 MG/DL (0.60-1.30); GFR ESTIMATED > 60; GLUCOSE 126 MG/DL (70-105); POTASSIUM 4.1 MMOL/L (3.6-5.0); SODIUM 138 MMOL/L (135-145); TOTAL PROTEIN 6.7 GM/DL (6.4-8.2)
[2017-09-15 08:00] VITALS: BP 132/85
[2017-09-15] MEDS: PANTOPRAZOLE 40 MG/10 ML (PROTONIX) VIAL IV SCH (09:33)
[2017-09-15 12:00] VITALS: BP 124/74
--- NOTE | 2017-09-15 15:23 | Progress Note ---
Subjective Time Seen by Provider: 12:57 Subjective/Events-last exam Pt seen and examined. Denies nausea or vomiting, still has minimal abdominal pain and thinks belly is distended same amount. He keeps asking about removing NGT. He has not had any flatus or BM. NGT output since 6am has only been 50cc. Review of Systems General: No Chills, No Night Sweats HEENT: No Head Aches Pulmonary: No Cough Cardiovascular: No: Chest Pain, Palpitations Gastrointestinal: Abdominal Pain, No: Nausea, Vomiting Genitourinary: No Dysuria, No Frequency Objective Exam Vital Signs Date Time Temp Pulse Resp B/P (MAP) Pulse Ox O2 Delivery O2 Flow Rate FiO2 09/15/17 12:00 98.6 92 20 124/74 (91) 94 Room Air 09/15/17 08:00 98.5 90 20 132/85 (101) 92 Room Air 09/15/17 04:00 98.4 84 16 122/75 (91) 91 Room Air 09/15/17 00:00 97.8 91 18 132/69 (90) 93 Room Air 09/14/17 20:40 98.6 86 18 117/80 (92) 92 Room Air 09/14/17 16:00 98.8 96 18 120/79 (93) 94 Room Air I & O 09/15/17 07:00 Intake Total 3000 ml Output Total 950 ml Balance 2050 ml Capillary Refill : Less Than 3 Seconds General Appearance: WD/WN, Mild Distress HEENT: Pharynx Normal, Moist Mucous Membranes, No Pale Conjunctivae (L), No Pale Conjunctivae (R), No Scleral Icterus (L), No Scleral Icterus (R), Other ( NGT in place) Respiratory: Chest Non Tender, Lungs Clear, Normal Breath Sounds, No Accessory Muscle Use, No Respiratory Distress Cardiovascular: Regular Rate, Rhythm, No Edema, No Murmur Gastrointestinal: soft, no organomegaly, distended (mild), No guarding, No rebound, No tenderness (mild diffuse) Extremity: Normal Capillary Refill, No Calf Tenderness, No Pedal Edema, Other ( missing fingers 4&5 on right hand) Neurologic/Psychiatric: Alert, Oriented x3, No Motor/Sensory Deficits, Normal Mood/Affect, fire control technician g II-XII Norm as Tested Skin: Normal Color, Warm/Dry Lymphatic: No Adenopathy (neck, axilla or groin) Results Lab Laboratory Tests 09/15/17 05:19: White Blood Count 10.3, Red Blood Count 4.46, Hemoglobin 13.8, Hematocrit 41, Mean Corpuscular Volume 93, Mean Corpuscular Hemoglobin 31, Mean Corpuscular Hemoglobin Concent 33, Red Cell Distribution Width 12.7, Platelet Count 248, Mean Platelet Volume 9.4, Neutrophils (%) (Auto) 61, Lymphocytes (%) (Auto) 26, Monocytes (%) (Auto) 10, Eosinophils (%) (Auto) 3, Basophils (%) (Auto) 0, Neutrophils # (Auto) 6.3, Lymphocytes # (Auto) 2.6, Monocytes # (Auto) 1.0, Eosinophils # (Auto) 0.3, Basophils # (Auto) 0.0, Sodium Level 138, Potassium Level 4.1, Chloride Level 104, Carbon Dioxide Level 25, Anion Gap 9, Blood Urea Nitrogen 16, Creatinine 1.03, Estimat Glomerular Filtration Rate > 60, BUN/ Creatinine Ratio 16, Glucose Level 126H, Calcium Level 9.1, Total Bilirubin 0.5 , Aspartate Amino Transf (AST/SGOT) 23, Alanine Aminotransferase (ALT/SGPT) 32, Alkaline Phosphatase 43, Total Protein 6.7, Albumin 3.8 Assessment/Plan Assessment/Plan Assessment/Plan 1. PSBO 2. HTN 3. Ventral hernia, Umbilical hernia, ??B/L Inguinal hernia Pt was admitted with NGT placement, IV fluids, pain control, anti-emetics and NPO. His labs have returned to normal. I still think this is more of a viral gastro-enteritis. No bowel in verntal hernia, just some fat. Pt was told to continue ambulating and chewing gum; he also needs to take deep breaths. Still no flatus but will clamp NGT and start ice chips. Will go very slow; hold EGD for now. If no flatus he may need SBFT. Clinical Quality Measures DVT/VTE Risk/Contraindication: Risk Factor Score Per Nursin RFS Level Per Nursing on Admit: 3=High YONIS MORRISON DO Sep 15, 2017 15:23
[2017-09-15 16:00] VITALS: BP 153/74
[2017-09-15 20:00] VITALS: BP 103/57
[2017-09-16] VITALS: BP 124/74
[2017-09-16] MEDS: D5 1/2 NS W/KCL 20 MEQ/L 1,000 ML IV SCH (07:25)
[2017-09-16 08:00] VITALS: BP 122/77
[2017-09-16] MEDS: PANTOPRAZOLE 40 MG/10 ML (PROTONIX) VIAL IV SCH (08:43)
[2017-09-16] MEDS: fentaNYL INJECTION 100 MCG/2 ML AMP IV PRN (10:32)
--- NOTE | 2017-09-16 11:12 | Progress Note ---
Subjective Time Seen by Provider: 10:47 Subjective/Events-last exam Pt seen and examined, states he has had flatus but denies BM. Denies nausea, vomiting or abdominal pain. He states he is better, wants to go home and doesn't think belly is distended anymore. Review of Systems General: No Chills, No Night Sweats Pulmonary: No Dyspnea, No Cough Cardiovascular: No: Chest Pain, Palpitations Gastrointestinal: No: Nausea, Vomiting, Abdominal Pain Objective Exam Vital Signs Date Time Temp Pulse Resp B/P (MAP) Pulse Ox O2 Delivery O2 Flow Rate FiO2 09/16/17 10:32 97.2 09/16/17 08:00 97.2 88 18 122/77 (92) 91 Room Air 09/16/17 00:00 98.6 87 19 124/74 (91) 92 Room Air 09/15/17 20:00 98.4 88 20 103/57 (72) 93 Room Air 09/15/17 16:00 98.2 100 20 153/74 (100) 93 Room Air 09/15/17 12:00 98.6 92 20 124/74 (91) 94 Room Air I & O 09/16/17 07:00 Intake Total 2000 ml Output Total 1225 ml Balance 775 ml Capillary Refill : Less Than 3 Seconds General Appearance: No Apparent Distress, WD/WN HEENT: Pharynx Normal, Moist Mucous Membranes, No Pale Conjunctivae (L), No Pale Conjunctivae (R), No Scleral Icterus (L), No Scleral Icterus (R), Other ( NGT in place) Respiratory: Chest Non Tender, Lungs Clear, Normal Breath Sounds, No Accessory Muscle Use, No Respiratory Distress Cardiovascular: Regular Rate, Rhythm, No Edema, No Murmur Gastrointestinal: non tender, soft, no organomegaly, No guarding, No rebound Extremity: Normal Capillary Refill, No Calf Tenderness, No Pedal Edema, Other ( missing fingers 4&5 on right hand) Neurologic/Psychiatric: Alert, Oriented x3, No Motor/Sensory Deficits, Normal Mood/Affect, certified wellness program manager II-XII Norm as Tested Skin: Normal Color, Warm/Dry Lymphatic: No Adenopathy (neck, axilla or groin) Assessment/Plan Assessment/Plan Assessment/Plan 1. PSBO 2. HTN 3. Ventral hernia, Umbilical hernia, ??B/L Inguinal hernia Will d/c NGT and start on soft diet. If he tolerates soft diet will send him home sometime after lunch. Clinical Quality Measures DVT/VTE Risk/Contraindication: Risk Factor Score Per Nursin RFS Level Per Nursing on Admit: 3=High YONIS MORRISON DO Sep 16, 2017 11:12
--- NOTE | 2017-09-16 11:14 | Discharge Inst-Surgical ---
Discharge Inst-Surgical Depart Medication/Instructions New, Converted or Re-Newed RX: Other (No new Rx needed) Patient Instructions Follow up Appt: Make appointment for 1 week. [phone] Symptoms to Report: Appetite Changes, Extremity Discoloration, Numbness/Tingling, Swelling Increased , Bleeding Excessive, Eyesight Changes, Pain Increased, Urine Color Change, Constipation(Persistent), Fever over 101 degree F, Pain/Pressure in chest, Urinating Difficulty, Cough Up/Vomit Blood, Heart Beat Irreg/Pounding, Pain/ Pressure in jaw, Cramps in feet or legs, Lightheadedness, Pain/Pressure in shoulder, Diarrhea(Persistent), Memory Changes Suddenly, Questions/Concerns, Weight gain consecutive days, Dizziness/Fainting, Nausea/Vomiting, Shortness of Breath, Weight gain over 2 pounds If questions or concerns contact your physician Or seek help at emergency department. Activity Activity as Tolerated: Yes Driving Instructions: You May Drive Diet Discharge Diet: No Restrictions Diet After 24 Hours: Clear Liquid if Nauseous If Any Problems/Questions/Issu: Contact Your Physician, Go to Emergency Room Skin/Wound Care Infection Signs and Symptoms: Increased Swelling Bathing Instructions: YONIS Camara DO Sep 16, 2017 11:14
[2017-09-16 15:02] VITALS: BP 122/77
== END 2017-09-16 15:02 | disposition home or self-care (01) | DRG 390 ==
LOC: EDUNIT# 04:29 → ER 04:32 → 4TH 06:15
PROVIDERS: ADMIT Surgery; ATTEND Surgery
DX: K56.600 Partial intestinal obstruction, unspecified as to cause (principal); I10 Essential (primary) hypertension; K21.9 Gastro-esophageal reflux disease without esophagitis; K43.9 Ventral hernia without obstruction or gangrene; K42.9 Umbilical hernia without obstruction or gangrene; Z82.49 Family history of ischemic heart disease and other diseases of the circulatory system; Z87.891 Personal history of nicotine dependence
CPT/HCPCS: 36415; 74022; 74176; 80053; 81000; 82150; 83690; 83735; 85025; 96361; 96374; 96375